=== PATIENT | female | born 1975 | race African-American/Black ===

== ENCOUNTER 2024-06-18 19:41 | Inpatient (IN) | payer OTHER ==
[~2024-06-18] VITALS: Ht 175.3 cm; Wt 100.2 kg
[2024-06-18] MEDS: METOCLOPRAMIDE HCL 10MG/2ML VIAL IV ONE (20:48)
[2024-06-18] MEDS: LABETALOL 5MG/ML 4ML INJ IV ONE (20:48)
[2024-06-18] MEDS: DIPHENHYDRAMINE 50MG/ML VIAL IV ONE (20:48)
[2024-06-18 21:04] LABS: CHLORIDE 103 mEq/L (98-107); POTASSIUM 3.4 mEq/L (3.5-5.1); SODIUM 141 mEq/L (136-145)
[2024-06-18 21:05] LABS: BASOPHILS % 0.9 % (0.0-2.0); CARBON DIOXIDE 26 mEq/L (21-32); EOSINOPHILS % 1.4 % (0.0-5.0); HEMATOCRIT. 38.7 % (36.0-48.0); HEMOGLOBIN. 12.8 g/dL (12.0-16.0); LYMPHOCYTES % 39.3 % (20.0-50.0); MEAN CORPUSCULAR HEMOGLOBIN 29.2 pg (28.0-32.0); MEAN CORPUSCULAR HGB CONC 33.1 g/dL (31.0-37.0); MEAN CORPUSCULAR VOLUME 88.3 fL (81.0-99.0); MEAN PLATELET VOLUME 9.3 fl (7.4-10.4); MONOCYTES % 4.5 % (2.0-8.0); NEUTROPHILS % 53.9 % (40.0-76.0); PLATELET 270 x1000/uL (130-400); RED BLOOD CELL COUNT 4.38 mill/uL (4.2-5.4); RED CELL DISTRIBUTION WIDTH 12.8 % (11.6-14.6); WHITE BLOOD COUNT 7.9 x1000/uL (4.5-11.0)
[2024-06-18 21:06] LABS: CALCIUM 9.6 mg/dL (8.7-10.4)
[2024-06-18 21:10] LABS: CREATININE 0.9 mg/dL (0.6-1.0); GLUCOSE 171 mg/dL (70-105)
[2024-06-18 21:11] LABS: HCG SCREEN NEGATIVE; UREA NITROGEN BLOOD 9 mg/dL (9-23)
[2024-06-18 21:12] LABS: ALANINE AMINOTRANSFERASE 28 IU/L (10-49); ALBUMIN 4.5 g/dL (3.2-4.8); ASPARTATE AMINOTRANSFERASE 27 IU/L (<34)
[2024-06-18 21:13] LABS: BILIRUBIN TOTAL 0.3 mg/dL (0.1-1.0); PROTEIN TOTAL 7.6 g/dL (6.0-8.3)
[2024-06-18 21:19] LABS: INR 0.9; PARTIAL THROMBOPLASTIN TIME 22.1 sec (23.4-31.0); PROTHROMBIN TIME 9.9 sec (9.6-11.0)
[2024-06-18 21:35] LABS: BILIRUBIN DIRECT < 0.1 mg/dL (<=3.0); TROPONIN I HIGH SENSITIVITY < 4 ng/L (3.0-34)
[2024-06-18] MEDS ORDERED: SODIUM CHLORIDE 0.9% (SEPSIS BOLUS) IV ONE (23:30)
[2024-06-18] MEDS ORDERED: CEFTRIAXONE 1GM/50ML 50 ML IV ONE (23:30)
[2024-06-18] MEDS ORDERED: AZITHROMYCIN 500MG/250ML 250 ML IV ONE (23:30)
[2024-06-18] MEDS: KETOROLAC 15MG/ML VIAL IV ONE (23:49)
[2024-06-19] VITALS (8 sets, daily range): BP systolic 112–181; BP diastolic 57–83; PULSE 79–96; RESP 18–20; TEMP 36.2–36.7; O2SAT 96–100
[2024-06-19] MEDS ORDERED: MAGNESIUM/ALUMINUM HYDROXIDE/SIMETHICONE 30ML UDC PO PRN (00:15)
[2024-06-19] MEDS ORDERED: HYDROCODONE/ACETAMINOPHEN 5/325MG TABLET PO PRN (00:15)
[2024-06-19] MEDS ORDERED: GUAIFENESIN 200MG/10ML SUGAR FREE UDC PO PRN (00:15)
[2024-06-19] MEDS ORDERED: DEXTROSE 50% WATER 50ML SYRINGE IV PRN ×2 (00:15→01:45)
[2024-06-19] MEDS ORDERED: DOCUSATE SODIUM 100MG CAPSULE PO PRN (00:15)
[2024-06-19] MEDS ORDERED: ONDANSETRON HCL 4MG/2ML INJ IV PRN (00:15)
[2024-06-19] MEDS ORDERED: ACETAMINOPHEN 325MG TABLET PO PRN (00:15)
[2024-06-19] MEDS ORDERED: IPRATROPIUM/ALBUTEROL 0.5-3(2.5)MG/3ML NEB HHN PRN (00:15)
[2024-06-19 00:20] LABS: CLARITY URINE CLEAR (CLEAR); COLOR URINE YELLOW (YELLOW); GLUCOSE URINE TRACE (NEGATIVE); KETONES URINE TRACE (NEGATIVE); LEUKOCYTE ESTERASE URINE NEGATIVE (NEGATIVE); NITRITE URINE NEGATIVE (NEGATIVE); OCCULT BLOOD URINE NEGATIVE (NEGATIVE); PH URINE 7.5 (4.5-8.0); PROTEIN URINE NEGATIVE (NEGATIVE); SPECIFIC GRAVITY URINE 1.045 (1.005-1.030); UROBILINOGEN URINE 0.2 E.U./dL (0.2-1.0)
[2024-06-19 00:36] LABS: RBC URINE 0-2 /hpf (0-2); WBC URINE 0-2 /hpf (0-2)
[2024-06-19 00:37] LABS: BACTERIA URINE TRACE; SQUAMOUS EPITHELIAL CELL URINE RARE /lpf (RARE/1+)
[2024-06-19] MEDS ORDERED: IOHEXOL-350 100 ML BOTTLE ONE (00:43)
[2024-06-19 00:51] LABS: LACTIC ACID 2.4 mmol/L (0.4-2.0)
[2024-06-19 00:53] LABS: *AMPHETAMINES SCREEN URINE NEGATIVE (NEGATIVE); *BARBITURATES SCREEN URINE NEGATIVE (NEGATIVE); *BENZODIAZEPINES SCREEN URINE NEGATIVE (NEGATIVE); *COCAINE SCREEN URINE NEGATIVE (NEGATIVE); METHADONE URINE SCREEN NEGATIVE (NEGATIVE); OPIATES URINE SCREEN NEGATIVE (NEGATIVE); PHENCYCLIDINE URINE SCREEN NEGATIVE (NEGATIVE)
[2024-06-19 00:54] LABS: CANNABINOID URINE SCREEN NEGATIVE (NEGATIVE); ECSTASY MDMA SCREEN URINE NEGATIVE (NEGATIVE)
[2024-06-19] MEDS: CLONIDINE 0.1MG TABLET PO PRN (01:30)
[2024-06-19] MEDS ORDERED: AMLO5TAB88 PO (01:58)
[2024-06-19] MEDS ORDERED: AMLO5TAB5 PO (01:59)
[2024-06-19] MEDS ORDERED: SUMATRIPTAN SUCCINATE 6MG/0.5ML VIAL SUBCUT PRN (04:15)
[2024-06-19] MEDS: SODIUM CHLORIDE 0.9% 500 ML IV NR (04:48)
[2024-06-19] MEDS ORDERED: GUAIFENESIN/CODEINE 200-20MG/10ML UDC PO PRN (05:45)
[2024-06-19] MEDS ORDERED: HYDRALAZINE HCL 100MG TABLET PO SCH (06:00)
[2024-06-19 06:30] LABS: CARBON DIOXIDE 28 mEq/L (21-32); CHLORIDE 107 mEq/L (98-107); SODIUM 143 mEq/L (136-145)
[2024-06-19 06:31] LABS: BASOPHILS % 0.3 % (0.0-2.0); CALCIUM 9.4 mg/dL (8.7-10.4); EOSINOPHILS % 0.1 % (0.0-5.0); HEMATOCRIT. 35.9 % (36.0-48.0); HEMOGLOBIN. 11.9 g/dL (12.0-16.0); LYMPHOCYTES % 20.3 % (20.0-50.0); MEAN CORPUSCULAR HEMOGLOBIN 29.2 pg (28.0-32.0); MEAN CORPUSCULAR HGB CONC 33.1 g/dL (31.0-37.0); MEAN CORPUSCULAR VOLUME 88.3 fL (81.0-99.0); MONOCYTES % 3.8 % (2.0-8.0); NEUTROPHILS % 75.5 % (40.0-76.0); PLATELET 255 x1000/uL (130-400); RED BLOOD CELL COUNT 4.07 mill/uL (4.2-5.4); RED CELL DISTRIBUTION WIDTH 12.8 % (11.6-14.6); WHITE BLOOD COUNT 9.1 x1000/uL (4.5-11.0)
[2024-06-19 06:35] LABS: CREATININE 0.8 mg/dL (0.6-1.0); GLUCOSE 120 mg/dL (70-105)
[2024-06-19] MEDS: INSULIN LISPRO 100 UNITS/ML SUBCUT SCH (06:35)
[2024-06-19] MEDS: BLOOD SUGAR DIAGNOSTIC STRIP TEST SCH ×2 (06:35)
[2024-06-19 06:36] LABS: LDL CHOLESTEROL 98 mg/dL (5-100); TRIGLYCERIDE 114 mg/dL (0-150); TROPONIN I HIGH SENSITIVITY 5 ng/L (3.0-34); UREA NITROGEN BLOOD 7 mg/dL (9-23)
[2024-06-19] MEDS: PANTOPRAZOLE 40MG DR TABLET PO SCH (06:36)
[2024-06-19] MEDS: LACTATED RINGERS 1,000 ML IV SCH (06:36)
[2024-06-19] MEDS: ACETAMINOPHEN 325MG TABLET PO PRN (06:37)
[2024-06-19 06:38] LABS: CHOLESTEROL 162 mg/dL (<200); HDL CHOLESTEROL 44 mg/dL (>65)
[2024-06-19 06:39] LABS: CREATINE KINASE 205 IU/L (34-145); T4 FREE 1.14 ng/dL (0.89-1.76); THYROID STIMULATING HORMONE 0.54 uIU/mL (0.55-4.78)
[2024-06-19] MEDS: LISINOPRIL 10MG TABLET PO SCH (08:37)
[2024-06-19] MEDS: AMLODIPINE 5MG TABLET PO SCH (08:38)
[2024-06-19] MEDS: ASPIRIN 81MG TABLET PO SCH (08:38)
[2024-06-19] MEDS: ENOXAPARIN 30MG/0.3ML SYR SUBCUT SCH (08:39)
[2024-06-19] MEDS: METHYLPREDNISOLONE SOD SUCC 125MG/2ML (ACT-O-VIAL) IV SCH (08:59)
[2024-06-19] MEDS ORDERED: LOSARTAN 50 MG TABLET PO SCH (09:00)
[2024-06-19] MEDS ORDERED: AMLODIPINE 10MG TABLET PO SCH (09:00)
[2024-06-19] MEDS ORDERED: NA PHOS,M-B/NA PHOS,DI-BA ENEMA 118ML PR PRN (09:00)
[2024-06-19] MEDS ORDERED: METHYLPREDNISOLONE SOD SUCC 40MG/ML (ACT-O-VIAL) IV SCH (09:00)
[2024-06-19] MEDS ORDERED: ATORVASTATIN CALCIUM 40MG TABLET PO SCH (09:00)
[2024-06-19] MEDS ORDERED: PREDNISONE 20MG TABLET PO SCH (09:00)
[2024-06-19 15:36] LABS: INFLUENZA TYPE A Presumptive Negative (Pres. Neg.); INFLUENZA TYPE B Presumptive Negative (Pres. Neg.)
[2024-06-19 15:37] LABS: RESPIRATORY SYNCYTIAL VIRUS Not Detected (Not Detectd)
[2024-06-19] MEDS ORDERED: LISI10TA26 PO (16:52)
[2024-06-19] MEDS ORDERED: ASPI-1160 PO (16:52)
[2024-06-19] MEDS: IPRATROPIUM/ALBUTEROL 0.5-3(2.5)MG/3ML NEB HHN SCH (17:09)
== END 2024-06-19 17:46 | disposition home or self-care (01) | DRG 305 ==
LOC: ER 19:41 → 8WST 23:38 → EDBEDREQ 23:39
PROVIDERS: ADMIT Internal Medicine; ATTEND Internal Medicine
DX: I16.1 Hypertensive emergency (principal); J45.901 Unspecified asthma with (acute) exacerbation; E78.5 Hyperlipidemia, unspecified; E05.90 Thyrotoxicosis, unspecified without thyrotoxic crisis or storm; E66.01 Morbid (severe) obesity due to excess calories; E83.42 Hypomagnesemia; I10 Essential (primary) hypertension; R73.9 Hyperglycemia, unspecified; Z68.32 Body mass index [BMI] 32.0-32.9, adult; Z87.891 Personal history of nicotine dependence; Z90.710 Acquired absence of both cervix and uterus
CPT/HCPCS: 36415; 70496; 70498; 71045; 80048; 80061; 80076; 80305; 81003; 82550; 82962; 83036; 83605; 83735; 83880; 84100; 84145; 84439; 84443; 84484; 84703; 85025; 85379; 86850; 86900; 87420; 87804; 93005; 94070; 94640; 94664; 98960; 99291; J1200; J1650; J1885; J2765; J2919; J3490; J7030; J7120; Q9967